=== PATIENT | male | born 1990 | race Two or more races ===

== ENCOUNTER 2024-02-26 00:45 | Emergency (ER) | payer MEDICAID, SELFPAY ==
[2024-02-26 00:46] VITALS: BMI 25.7
[2024-02-26 00:57] VITALS: BP 128/80; PULSE 67; RESP 18; TEMP 36.7; O2SAT 97
--- NOTE | 2024-02-26 01:17 | PD.EDEAR ---
ED Ear RME/HPI General Chief complaint: Ear Stated complaint: RIGHT EAR PAIN Time Seen by Provider: 02/26/24 01:02 Arrival date/time: 02/26/24 00:45 33M with no significant PMH presents to ED with several days of R ear pain. Limitations: no limitations Related Data Previous Rx's ?Medication ?Instructions ?Recorded albuterol sulfate 90 mcg/actuation 2 puff inhalation Q6HR PRN 01/02/17 aerosol inhaler (ProAir HFA) WHEEZING #1 inh amoxicillin 875 mg tablet 875 mg PO BID 5 days #10 tabs 02/26/24 Allergies Allergy/AdvReac Type Severity Reaction Status Date / Time No Known Allergies Allergy Verified 03/01/22 17:31 Review of Systems Review of Systems Systems Reviewed: All systems reviewed, normal except as documented Constitutional Constitutional: Reports system reviewed and no additional complaints, except as documented, Denies fever(s) and Denies headache(s) ENT Ears, Nose, Mouth, and Throat: Reports as per HPI, Denies disequilibrium, Reports otalgia and Denies headache(s) Cardiovascular Cardiovascular: Reports system reviewed and no additional complaints, except as documented, Denies chest pain and Denies dyspnea Respiratory Respiratory: Reports system reviewed and no additional complaints, except as documented, Denies cough and Denies dyspnea Gastrointestinal Gastrointestinal: Reports system reviewed and no additional complaints, except as documented, Denies abdominal pain, Denies nausea and Denies vomiting Neurologic Neurologic: Reports system reviewed and no additional complaints, except as documented, Denies confusion, Denies disequilibrium and Denies headache(s) Psychiatric Psychiatric: Denies confusion Past Medical History Social History SMOKING STATUS: Current every day smoker ED Exam General Limitations: Present no limitations General appearance: Present alert and in no apparent distress Head Head exam: Present atraumatic Eye Eye exam: Present normal appearance, PERRL and EOMI ENT ENT exam: Present normal oropharynx and mucous membranes moist Expanded ENT Exam TM/Canal exam: Right TM: erythema and bulging Neck Neck exam: Present normal inspection, full ROM and trachea midline Chest Chest inspection: Present normal inspection and symmetric chest wall rise Respiratory Respiratory exam: Present normal lung sounds bilaterally Cardiovascular Cardiovascular exam: Present regular rate, normal rhythm and normal heart sounds Abdominal Exam Abdominal exam: Present soft and normal bowel sounds Extremities Exam Extremities exam: Present normal inspection and full ROM Back Exam Back exam: Present normal inspection and full ROM Neurological Exam Neurological exam: Present alert, oriented X3 and CN II-XII intact Psychiatric Psychiatric exam: Present normal affect and normal mood Skin Skin exam: Present warm, dry, intact and normal color Course Quality Measures none Vital Signs Vital signs: Vital Signs Temperature 98.1 F 02/26/24 00:57 Pulse Rate 67 02/26/24 00:57 Respiratory Rate 18 02/26/24 00:57 Blood Pressure 128/80 02/26/24 00:57 Pulse Oximetry (%) 97 02/26/24 00:57 Oxygen Delivery Method Room Air 02/26/24 00:57 O2 at 97% on RA and WNLs Ear MDM Narrative MDM Narrative:: 33M with no significant PMH presents to ED with several days of R ear pain. Physical exam reveals R red and bulging TM. Patient is afebrile, calm, and alert. Likely OM. Patient data External records reviewed:: [facility] previous records Clinical information provided by:: patient Social determinants that could affect healthcare access:: none Patient has the following chronic illnesses:: none How is presenting disease/condition affected by chronic disease/condition?: no chronic disease Evaluation data The following diagnostics were reviewed and interpreted by me:: other (specify) (none) Lab and/or radiology exams considered but not ordered:: not ordered Interpretation Summary: n/a Medications / Prescriptions Medications or Prescriptions considered but not ordered:: not ordered Medication administrations:: n/a Consultations Consultation(s) initiated? (list below): No Diagnosis Ear Differential Diagnosis: otitis externa, otitis media, foreign body in ear, ruptured TM and cerumen impaction Most likely diagnosis given after review of the tests above:: OM Admission Indicated Admission indicated?: not indicated Admission Request Was there a request for admission?: No Disposition Plan Disposition Plan: Discharge Discharge Attestation Discharge Attestation: The patient and all family members were given an opportunity to ask questions and understood the discharge instructions. Discharge instructions specifically effects, indications for sooner follow up or return to the emergency department, and the expected course of current diagnosis. Patient condition: Stable Discharge Plan Plan Patient Disposition: HOME (Self Care) Disposition Comment: Stable Prescriptions/Referrals Prescriptions/Med Rec: New amoxicillin 875 mg tablet 875 mg PO BID 5 Days Qty: 10 0RF No Action albuterol sulfate [ProAir HFA] 8.5 GM HFA aerosol inhaler 2 puff Inhalation Q6HR PRN (Reason: WHEEZING) Qty: 1 0RF Rx Instructions: please give spacer Problem List Clinical Impression: Otitis media Patient/Caregiver Discharge Instructions Education Materials: ED Otitis Media Antibiotic ... Additional Instructions: Please follow-up with PCP within 24-48 hours and return immediately if symptoms worsen. Print Language: Bahamian Stand Alone Forms: Patient Portal Info Letter PA/ENGINEER AUTOMATED EQUIPMENT Supervising Physician PA/ENG[employer]ER [employer] Supervising Physician: Dr. Fink
== END 2024-02-26 01:08 | disposition home or self-care (01) ==
LOC: SERX 03:09
PROVIDERS: Emergency Provider Emergency Medicine; PCP Family Medicine
DX: H66.91 Otitis media, unspecified, right ear (principal)
CPT/HCPCS: 99281

== ENCOUNTER 2024-06-23 10:34 | Emergency (ER) | payer SELFPAY ==
[2024-06-23 10:34] VITALS: BMI 25.7
--- NOTE | 2024-06-23 11:09 | XR_ITS ---
Examination: Right elbow 3 views Technique: Elbow AP, oblique, lateral 3 views Exam date and time: June 23, 2024 1131 hours INDICATIONS: Right elbow pain beginning one week ago. FINDINGS: Mild elbow osteoarthritis No fracture or dislocation No elbow effusion IMPRESSION: Mild elbow osteoarthritis.
--- NOTE | 2024-06-23 11:10 | PD.EDUPEX ---
Upper Extremity Injury RME/HPI General Chief Complaint: Extremity Injury, Upper Stated Complaint: R) ARM PAIN FROM WRIST TO ELBOW Time Seen by Provider: 06/23/24 11:10 Source: patient Arrival date/time: 06/23/24 10:34 33-year-old male with no known medical history presents to the emergency room with a chief complaint of pain and tenderness to his right elbow x 3 days Mode of arrival: ambulatory Limitations: no limitations Related Data Previous Rx's ?Medication ?Instructions ?Recorded albuterol sulfate 90 mcg/actuation 2 puff inhalation Q6HR PRN 01/02/17 aerosol inhaler (ProAir HFA) WHEEZING #1 inh ibuprofen 600 mg tablet 600 mg PO Q8H PRN fever or pain 06/23/24 #20 tabs Allergies Allergy/AdvReac Type Severity Reaction Status Date / Time No Known Allergies Allergy Verified 06/23/24 10:37 Review of Systems Review of Systems Systems Reviewed: All systems reviewed, normal except as documented Constitutional Constitutional: Reports system reviewed and no additional complaints, except as documented, Denies fatigue, Denies fever(s), Denies headache(s) and Denies weakness Eyes Eyes: Reports system reviewed and no additional complaints, except as documented, Denies blurry vision and Denies change in vision ENT Ears, Nose, Mouth, and Throat: Reports system reviewed and no additional complaints, except as documented, Denies otalgia, Denies headache(s), Denies nasal congestion, Denies throat swelling and Denies vertigo Cardiovascular Cardiovascular: Reports system reviewed and no additional complaints, except as documented, Denies chest pain, Denies dyspnea and Denies dyspnea on exertion Respiratory Respiratory: Reports system reviewed and no additional complaints, except as documented, Denies chest congestion, Denies cough, Denies dyspnea, Denies dyspnea on exertion and Denies wheezing Gastrointestinal Gastrointestinal: Reports system reviewed and no additional complaints, except as documented, Denies abdominal pain, Denies cramping, Denies nausea and Denies vomiting Genitourinary Genitourinary: Reports system reviewed and no additional complaints, except as documented, Denies dysuria and Denies hematuria Musculoskeletal Musculoskeletal: Reports system reviewed and no additional complaints, except as documented, Reports arthralgias, Denies back pain, Reports joint swelling and Reports limited range of motion Integumentary/Breasts Skin/Breast: Reports system reviewed and no additional complaints, except as documented and Denies wounds Neurologic Neurologic: Reports system reviewed and no additional complaints, except as documented, Denies confusion, Denies headache(s), Denies lack of coordination, Denies vertigo and Denies weakness Psychiatric Psychiatric: Reports system reviewed and no additional complaints, except as documented, Denies anxiety, Denies confusion, Denies depression, Denies paranoia, Denies suicidal ideation and Denies tactile hallucinations Endocrine Endocrine: Reports system reviewed and no additional complaints, except as documented and Denies fatigue Hematologic/Lymphatic Hematologic/Lymphatic: Reports system reviewed and no additional complaints, except as documented and Denies lymphadenopathy Allergic/Immunologic Allergic/Immunologic: Reports system reviewed and no additional complaints, except as documented, Denies throat swelling, Denies urticaria and Denies wheezing Past Medical History Social History SMOKING STATUS: Never smoker ED Exam General Limitations: Present no limitations General appearance: Present alert and in no apparent distress Head Head exam: Present atraumatic Eye Eye exam: Present normal appearance, PERRL and EOMI ENT ENT exam: Present normal exam, normal oropharynx and mucous membranes moist Neck Neck exam: Present normal inspection, full ROM and trachea midline Chest Chest inspection: Present normal inspection and symmetric chest wall rise Respiratory Respiratory exam: Present normal lung sounds bilaterally Cardiovascular Cardiovascular exam: Present regular rate, normal rhythm and normal heart sounds Abdominal Exam Abdominal exam: Present soft and normal bowel sounds Extremities Exam Extremities exam: Present normal inspection and full ROM Expanded Upper Extremity Exam Shoulder exam: Present normal inspection Arm exam: Present normal inspection Elbow exam: Present full ROM, tenderness, pain w/ pronation/supination and tenderness over radial head; Absent deformity Back Exam Back exam: Present normal inspection and full ROM Neurological Exam Neurological exam: Present alert, oriented X3 and CN II-XII intact Psychiatric Psychiatric exam: Present normal affect and normal mood Skin Skin exam: Present warm, dry, intact and normal color Course Quality Measures none Orders Category Date Time Status scott wrap [Splint / Immobilizer] STAT Care 06/23/24 11:09 Completed XR elbow comp RT min 3V Stat Exams 06/23/24 11:09 Completed Ketorolac Inj [Toradol Inj] Med 06/23/24 11:09 Discontinued 30 mg IM X1 ONE Vital Signs Vital signs: Vital Signs Temperature 98.5 F 06/23/24 11:12 Pulse Rate 68 06/23/24 11:12 Respiratory Rate 16 06/23/24 11:12 Blood Pressure 125/86 H 06/23/24 11:12 Pulse Oximetry (%) 100 06/23/24 11:12 Oxygen Delivery Method Room Air 06/23/24 11:12 O2 saturation 100% within normal limits Extremity Injury MDM Narrative MDM Narrative:: 33-year-old male with no known medical history presents to the emergency room with a chief complaint of pain and tenderness to his right elbow x 3 days Patient is hemodynamically stable and in no apparent distress Physical examination shows pain and tenderness to the patient's right elbow. The patient has pain with supination. X-ray of the elbow was completed and was negative for any acute fracture or dislocation. Patient's symptoms are consistent with medial epicondylitis. An Scott wrap was placed and patient was given medication. Patient was discharged and educated to follow-up with primary care provider in the next 24 to 48 hours and return to the emergency room for any evidence of worsening signs or symptoms Patient data External records reviewed:: [facility] previous records Clinical information provided by:: patient Social determinants that could affect healthcare access:: none Patient has the following chronic illnesses:: No chronic illness How is presenting disease/condition affected by chronic disease/condition?: no chronic disease Evaluation data The following diagnostics were reviewed and interpreted by me:: lab results and radiology exam(s) Lab and/or radiology exams considered but not ordered:: Labs and radiology exams considered and ordered Interpretation Summary: Elbow [id number]: Mild elbow osteoarthritis No fracture or dislocation No elbow effusion IMPRESSION: Mild elbow osteoarthritis. Medications / Prescriptions Medications or Prescriptions considered but not ordered:: Medication given Medication administrations:: Medication Administration History Discontinued Medications Ketorolac Tromethamine (Ketorolac Inj 60 Mg/2 Ml Vial) 30 mg IM X1 ONE Stop: 06/23/24 11:10 Last Admin: 06/23/24 12:33 Dose: 30 mg Documented By: KM Medication given Consultations Consultation(s) initiated? (list below): No Diagnosis Upper Extremity Injury Differential Diagnosis: other (Medial epicondylitis/lateral epicondylitis/elbow fracture/elbow sprain) Most likely diagnosis given after review of the tests above:: Medial epicondylitis Admission Indicated Admission indicated?: not indicated Admission Request Was there a request for admission?: No Disposition Plan Disposition Plan: Discharge Discharge Attestation Discharge Attestation: The patient and all family members were given an opportunity to ask questions and understood the discharge instructions. Discharge instructions specifically effects, indications for sooner follow up or return to the emergency department, and the expected course of current diagnosis. Patient condition: Stable Discharge Plan Plan Patient Disposition: HOME (Self Care) Disposition Comment: Stable Prescriptions/Referrals Prescriptions/Med Rec: New ibuprofen 600 mg tablet 600 mg PO Q8H PRN (Reason: fever or pain) Qty: 20 0RF No Action albuterol sulfate [ProAir HFA] 8.5 GM HFA aerosol inhaler 2 puff Inhalation Q6HR PRN (Reason: WHEEZING) Qty: 1 0RF Rx Instructions: please give spacer Problem List Clinical Impression: Epicondylitis elbow, medial Patient/Caregiver Discharge Instructions Education Materials: Understanding Medial Epicondylitis Additional Instructions: Please follow-up with your primary care provider in the next 24 to 48 hours. Your x-ray was negative for any acute fracture or dislocation. This appears to be a sprain to one of the tendons in your elbow. For any evidence of worsening signs or symptoms return to the emergency room immediately Print Language: Slovak Stand Alone Forms: [place] Award Info., Work/School Release, Patient Portal Info Letter PA/REPORT PROGRAMMER Supervising Physician PA/REPORT PROGRAMMER Supervising Physician: Dr. Lama
[2024-06-23 11:12] VITALS: BP 125/86; PULSE 68; RESP 16; TEMP 36.9; O2SAT 100; BMI 25.7
[2024-06-23] MEDS: KETOROLAC INJ 60 MG/2 ML VIAL 30 MG IM (12:33)
[2024-06-23 13:39] VITALS: RESP 18; TEMP 37; O2SAT 100
== END 2024-06-23 13:20 | disposition home or self-care (01) ==
LOC: SERX 12:51
PROVIDERS: Emergency Provider Emergency Medicine; PCP Family Medicine
DX: M77.01 Medial epicondylitis, right elbow (principal); M19.021 Primary osteoarthritis, right elbow
CPT/HCPCS: 73080; 96372; 99283; J1885

== ENCOUNTER 2024-07-10 16:26 | Emergency (ER) | payer SELFPAY ==
[2024-07-10 16:46] VITALS: BP 124/81; PULSE 72; RESP 18; TEMP 37.2; O2SAT 96; BMI 26.4
--- NOTE | 2024-07-10 16:54 | XR_ITS ---
Examination: PA lateral chest 2 views TECHNIQUE: Upright PA lateral chest 2 views Examination type: July 10, 2024 1945 hours INDICATIONS: Coughing wheezing fever beginning one week ago. FINDINGS: Normal heart size. Lungs are clear. The osseous structures are intact. IMPRESSION: No active disease
--- NOTE | 2024-07-10 16:55 | PD.EDRME ---
Rapid Medical Screening Exam RME Arrival date/time: 07/10/24 16:26 33-year-old male with no known medical history presents to the emergency room with a chief complaint of cough, congestion, headache, loss of food taste x 3 days I have greeted and performed a focused initial assessment of this patient. A comprehensive ED assessment and evaluation of the patient, analysis of all test results, and completion of the medical decision making process will be conducted by additional ED providers. Chief Complaint: Flu Like Symptoms Vital signs: Vital Signs Temperature 99 F 07/10/24 16:46 Pulse Rate 72 07/10/24 16:46 Respiratory Rate 18 07/10/24 16:46 Blood Pressure 124/81 07/10/24 16:46 Pulse Oximetry (%) 96 07/10/24 16:46 Oxygen Delivery Method Room Air 07/10/24 16:46 Vital signs reviewed by provider: Yes
[2024-07-10] MEDS: ALBUTEROL/IPRATROPIUM (Duoneb) RT SOL 3 ML NEBU INH (17:11)
[2024-07-10 17:12] VITALS: PULSE 72; RESP 18; O2SAT 98
[2024-07-10] MEDS: DEXAMETHASONE SOD PHOS INJ 10 MG/ML VIAL PO (17:34)
--- NOTE | 2024-07-10 20:09 | EDNOTE_ITS ---
<Statement entered by Vivian Spicer MD - 07/12/24 04:23> As co-signing physician, I was present and available for consult prn. I concur with the plan and care as documented by the midlevel provider. Upper Respiratory Inf. RME/HPI General Chief Complaint: Flu Like Symptoms Stated Complaint: SINUS PRESSURE, COUGH, FEVER X 4 DAYS Time Seen by Provider: 07/10/24 20:01 Arrival date/time: 07/10/24 16:26 RME / HPI RME / HPI Narrative: 33-year-old male with no known medical history presents to the emergency room with a chief complaint of cough, congestion, headache, loss of food taste x 3 days. Patient is also complaining of a lot of nasal congestion. Also complaining of facial pain and headache. Denies any other complaints no medications taken prior to ER visit. Related Data Previous Rx's ?Medication ?Instructions ?Recorded albuterol sulfate 90 mcg/actuation 2 puff inhalation Q 6HR PRN 01/02/17 aerosol inhaler (ProAir HFA) WHEEZING #1 inh ibuprofen 600 mg tablet 600 mg PO Q8H PRN fever or p ain 06/23/24 #20 tabs albuterol sulfate 90 mcg/actuation 2 inh inhalation Q6 H PRN shortness 07/10/24 aerosol inhaler of breath or wheezing #8.5 g anaya amoxicillin 875 mg-potassium 1 tab PO BID #14 tabs 05/05 clavulanate 125 mg tablet prednisone 50 mg tablet 50 mg PO QDAY #5 tabs Allergies Allergy/AdvReac Type Severity Reaction Status Date / Time No Known Allergies Allergy Verified 07/10/24 16:29 Review of Systems Review of Systems Narrative Review of Systems: Review of system reviewed and within normal limits except mentioned in HPI ED Exam Narrative Physical exam: VITAL SIGNS: Reviewed. GENERAL APPEARANCE: Alert and interactive, follows commands, no acute distress, HEAD AND FACE: Non-traumatic.+ Frontal tenderness bilateral ENT: PERRL, pink conjunctivitis, eyelid no trauma, Mucous membrane moist., Nasal congestion NECK: Supple, nontender, no nuchal rigidity. CHEST: No tenderness, no crepitus, no paradoxical movement, no retractions. LUNGS: Clear, well ventilated, symmetric, no rales, no wheezing, no ronchi, no stridor, good breath sounds bilaterally. HEART: Regular rate, regular rhythm, no murmur, no gallops. ABDOMEN: Soft, positive bowel sounds, nondistended, no guarding, nontender, no rebound, no masses, RECTAL: Deferred. GENITAL: Deferred. NEUROLOGICAL: Gross motor function intact sensory function intact, Appropriate for age. MUSCULOSKELETAL: low back nontender, full range of motion. EXTREMITIES: Nontender, full range of motion. SKIN: Color pink, dry, no rash, no lacerations, no abrasions, no contusions. LYMPHATICS: Deferred. Course Quality Measures none Orders Category Date Time Status Bedside COVID-19 Antigen Test NOW Care 07/10/24 16:54 Active Bedside Influenza A&B Antigen Test NOW Care 07/10/24 16:54 Completed XR chest 2V Stat Exams 07/10/24 16:54 Completed Albuterol/Ipratr Rt Nury [Duoneb Rt Nury] Med 07/10/24 16:54 Discontinued 3 ml INH X1 ONE Amoxicillin/Pot Clav 875 [Augmentin 875] Med 07/10/24 20:09 Once 1 tab PO X1 ONE Dexamethasone Inj [Decadron Inj] Med 07/10/24 16:54 Discontinued 10 mg PO X1 ONE Vital Signs Vital signs: Vital Signs Temperature 99 F 07/10/24 16:46 Pulse Rate 72 07/10/24 16:46 Respiratory Rate 18 07/10/24 16:46 Blood Pressure 124/81 07/10/24 16:46 Pulse Oximetry (%) 96 07/10/24 16:46 Oxygen Delivery Method Room Air 07/10/24 16:46 Upper Respiratory Infection MDM Narrative MDM Narrative:: 33-year-old male with no known medical history presents to the emergency room with a chief complaint of cough, congestion, headache, loss of food taste x 3 days. Patient is also complaining of a lot of nasal congestion. Also complaining of facial pain and headache. Denies any other complaints no medications taken prior to ER visit. Patient chest x-ray came back unremarkable. Patient tested negative for influenza and COVID-19 Patient received Decadron and DuoNeb breathing treatment. Patient was also given Augmentin for sinusitis. Patient verbalized significant improvement of symptoms. Patient appears nontoxic and hemodynamically stable. Patient discharged home and instructed to follow-up with primary care provider in 24 to 48 hours. Instructed to return to the emergency department immediately if worsening of symptoms Patient data External records reviewed:: None Clinical information provided by:: patient Social determinants that could affect healthcare access:: none Patient has the following chronic illnesses:: None How is presenting disease/condition affected by chronic disease/condition?: no chronic disease Evaluation data The following diagnostics were reviewed and interpreted by me:: lab results and radiology exam(s) Lab and/or radiology exams considered but not ordered:: None Interpretation Summary: See results MDM Medications / Prescriptions Medications or Prescriptions considered but not ordered:: None Medication administrations:: Medication Administration History Discontinued Medications Albuterol/Ipratropium (Albuterol/Ipratropium (Duoneb) Rt Nury 3 Ml Nebu) 3 ml INH X1 ONE Stop: 07/10/24 16:55 Last Admin: 07/10/24 17:11 Dose: 3 ml Documented By: PRINCESS Dexamethasone Sodium Phosphate (Dexamethasone Sod Phos Inj 10 Mg/Ml Vial) 10 mg PO X1 ONE Stop: 07/10/24 16:55 Last Admin: 07/10/24 17:34 Dose: 10 mg Documented By: Radha and Kayleigh Consultations Consultation(s) initiated? (list below): No Diagnosis Upper Respiratory Differential Diagnosis: upper respiratory infection, sinusitis and bronchitis Most likely diagnosis given after review of the tests above:: Sinusitis, shortness of breath Admission Indicated Admission indicated?: not indicated Admission Request Was there a request for admission?: No Disposition Plan Disposition Plan: Discharge Discharge Attestation Discharge Attestation: The patient was given an opportunity to ask questions and understood the discharge instructions. Discharge instructions specifically effects, indications for sooner follow up or return to the emergency department, and the expected course of current diagnosis. Patient condition: Stable Discharge Plan Plan Patient Disposition: HOME (Self Care) Discharge Disposition comment: Stable Prescriptions/Referrals Prescriptions/Med Rec: New prednisone 50 mg tablet 50 mg PO QDAY Qty: 5 0RF amoxicillin-pot clavulanate 875-125 mg tablet 1 tab PO BID Qty: 14 0RF albuterol sulfate 90 mcg/actuation HFA aerosol inhaler 2 inh inhalation Q6H PRN (Reason: shortness of breath or wheezing) Qty: 8.5 0RF No Action albuterol sulfate [ProAir HFA] 8.5 GM HFA aerosol inhaler 2 puff Inhalation Q6HR PRN (Reason: WHEEZING) Qty: 1 0RF Rx Instructions: please give spacer ibuprofen 600 mg tablet 600 mg PO Q8H PRN (Reason: fever or pain) Qty: 20 0RF Referrals: No Primary/Family,Physician [Primary Care Provider] - In 1 week Problem List Clinical Impression: Sinusitis Patient/Caregiver Discharge Instructions Discharge Activity: activity as tolerated Education Materials: Causes of Sinusitis Additional Instructions: Thank you for the opportunity for serving you today. You are stable for discharged . You are advised to: Follow-up with your PCP in 1 to 2 days Return to ED for worsening of symptoms Increase oral fluids Take medication as prescribed Print Language: Sierra Leonean Stand Alone Forms: [place] Award Info., Work/School Release, Patient Portal Info Letter MARK/SEFERINO Supervising Physician MARK/SEFERINO Supervising Physician: MD Nayan
[2024-07-10 20:18] VITALS: BP 122/78; PULSE 77; O2SAT 99
== END 2024-07-10 20:25 | disposition home or self-care (01) ==
PROVIDERS: Emergency Provider Emergency Medicine
DX: J32.9 Chronic sinusitis, unspecified (principal)
CPT/HCPCS: 71046; 87400; 87811; 94640; 99283; A9270; J1100

== ENCOUNTER 2024-07-15 17:28 | Emergency (ER) | payer SELFPAY ==
[2024-07-15 17:29] VITALS: BMI 27.4
[2024-07-15 18:13] VITALS: BP 128/87; PULSE 56; RESP 16; TEMP 36.9; O2SAT 98
--- NOTE | 2024-07-15 18:36 | PD.EDHAND ---
Upper Extremity Injury RME/HPI General Chief Complaint: Hand/Wrist Problems Stated Complaint: L INDEX FINGER INJURY Time Seen by Provider: 07/15/24 18:28 Arrival date/time: 07/15/24 17:28 33M with no significant PMH presents to ED with several days of L index finger pain after he accidentally poked himself with a metal ugarte. Patient has not had a tetanus shot in the past 5 years. Limitations: no limitations Related Data Previous Rx's ?Medication ?Instructions ?Recorded albuterol sulfate 90 mcg/actuation 2 puff inhalation Q6HR PRN 01/02/17 aerosol inhaler (ProAir HFA) WHEEZING #1 inh ibuprofen 600 mg tablet 600 mg PO Q8H PRN fever or pain 06/23/24 #20 tabs albuterol sulfate 90 mcg/actuation 2 inh inhalation Q6H PRN shortness 07/10/24 aerosol inhaler of breath or wheezing #8.5 grams amoxicillin 875 mg-potassium 1 tab PO BID #14 tabs 07/10/24 clavulanate 125 mg tablet prednisone 50 mg tablet 50 mg PO QDAY #5 tabs 07/10/24 doxycycline hyclate 100 mg tablet 100 mg PO BID 5 days #10 tabs 07/15/24 Allergies Allergy/AdvReac Type Severity Reaction Status Date / Time No Known Allergies Allergy Verified 07/15/24 17:29 Review of Systems Review of Systems Systems Reviewed: All systems reviewed, normal except as documented Constitutional Constitutional: Reports system reviewed and no additional complaints, except as documented, Denies fever(s) and Denies headache(s) ENT Ears, Nose, Mouth, and Throat: Denies disequilibrium and Denies headache(s) Cardiovascular Cardiovascular: Reports system reviewed and no additional complaints, except as documented, Denies chest pain and Denies dyspnea Respiratory Respiratory: Reports system reviewed and no additional complaints, except as documented, Denies cough and Denies dyspnea Gastrointestinal Gastrointestinal: Reports system reviewed and no additional complaints, except as documented, Denies abdominal pain, Denies nausea and Denies vomiting Integumentary/Breasts Skin/Breast: Reports as per HPI and Reports skin pain Neurologic Neurologic: Reports system reviewed and no additional complaints, except as documented, Denies confusion, Denies disequilibrium and Denies headache(s) Psychiatric Psychiatric: Denies confusion Past Medical History Social History SMOKING STATUS: Current some day smoker ED Exam General Limitations: Present no limitations General appearance: Present alert and in no apparent distress Head Head exam: Present atraumatic Eye Eye exam: Present normal appearance, PERRL and EOMI ENT ENT exam: Present normal exam, normal oropharynx and mucous membranes moist Neck Neck exam: Present normal inspection, full ROM and trachea midline Chest Chest inspection: Present normal inspection and symmetric chest wall rise Respiratory Respiratory exam: Present normal lung sounds bilaterally Cardiovascular Cardiovascular exam: Present regular rate, normal rhythm and normal heart sounds Abdominal Exam Abdominal exam: Present soft and normal bowel sounds Extremities Exam Extremities exam: Present full ROM Expanded Upper Extremity Exam Hand exam: Present full ROM (L index finger around nail), tenderness and swelling Back Exam Back exam: Present normal inspection and full ROM Neurological Exam Neurological exam: Present alert, oriented X3 and CN II-XII intact Psychiatric Psychiatric exam: Present normal affect and normal mood Skin Skin exam: Present warm, dry, intact and normal color Course Quality Measures none Orders Category Date Time Status Wound Care NOW Care 07/15/24 18:28 Active Doxycycline [Vibramycin] Med 07/15/24 18:28 Discontinued 100 mg PO X1 ONE TET,DIP/PERT AC (Adult)-Tdap [Boostrix Adult (Tdap) Med 07/15/24 18:28 Discontinued Vacc] 0.5 ml IMI .ONCE ONE Vital Signs Vital signs: Vital Signs Temperature 98.5 F 07/15/24 18:13 Pulse Rate 56 L 07/15/24 18:13 Respiratory Rate 16 07/15/24 18:13 Blood Pressure 128/87 H 07/15/24 18:13 Pulse Oximetry (%) 98 07/15/24 18:13 Oxygen Delivery Method Room Air 07/15/24 18:13 O2 at 98% on RA and WNLs Procedures -ED Abscess I/D Site: hand Side (if applicable): left Sedation/analgesia: none Local Anesthetic: lidocaine 1% Amount of anesthesia used (mL): 2 Technique: needle aspiration Amount of fluid expressed (mL): 1 Irrigation: Yes Packing used?: none Complications: pain and bleeding Extremity Injury MDM Narrative MDM Narrative:: 33M with no significant PMH presents to ED with several days of L index finger pain after he accidentally poked himself with a metal ugarte. Patient has not had a tetanus shot in the past 5 years. Physical exam reveals L index finger swelling and some pus around fingernail. ROM intact. Patient is afebrile, calm and alert. Paronychia drained. Tdap and ABX given. Patient data External records reviewed:: [facility] previous records Clinical information provided by:: patient Social determinants that could affect healthcare access:: none Patient has the following chronic illnesses:: none How is presenting disease/condition affected by chronic disease/condition?: no chronic disease Evaluation data The following diagnostics were reviewed and interpreted by me:: other (specify) (none) Lab and/or radiology exams considered but not ordered:: not ordered Interpretation Summary: n/a Medications / Prescriptions Medications or Prescriptions considered but not ordered:: ordered Medication administrations:: Medication Administration History Discontinued Medications Diphtheria/Tetanus/Acell Pertussis (Diphth,Pertuss(Acell),Tet Vac 0.5 Ml Syr- Adult) 0.5 ml IMi .ONCE ONE Stop: 07/15/24 18:29 Last Admin: 07/15/24 18:58 Dose: 0.5 ml Documented By: EILEEN Doxycycline Hyclate (Doxycycline 100 Mg Tablet) 100 mg PO X1 ONE Stop: 07/15/24 18:29 Last Admin: 07/15/24 18:59 Dose: 100 mg Documented By: EILEEN above Consultations Consultation(s) initiated? (list below): No Diagnosis Upper Extremity Injury Differential Diagnosis: sprain and strain of wrist, fracture of wrist, finger sprain and other (paronychia, cellulitis, hematoma) Most likely diagnosis given after review of the tests above:: paronychia Admission Indicated Admission indicated?: not indicated Admission Request Was there a request for admission?: No Disposition Plan Disposition Plan: Discharge Discharge Attestation Discharge Attestation: The patient and all family members were given an opportunity to ask questions and understood the discharge instructions. Discharge instructions specifically effects, indications for sooner follow up or return to the emergency department, and the expected course of current diagnosis. Patient condition: Stable Discharge Plan Plan Patient Disposition: HOME (Self Care) Discharge Disposition comment: Stable Prescriptions/Referrals Prescriptions/Med Rec: New doxycycline hyclate 100 mg tablet 100 mg PO BID 5 Days Qty: 10 0RF No Action albuterol sulfate [ProAir HFA] 8.5 GM HFA aerosol inhaler 2 puff Inhalation Q6HR PRN (Reason: WHEEZING) Qty: 1 0RF Rx Instructions: please give spacer ibuprofen 600 mg tablet 600 mg PO Q8H PRN (Reason: fever or pain) Qty: 20 0RF prednisone 50 mg tablet 50 mg PO QDAY Qty: 5 0RF amoxicillin-pot clavulanate 875-125 mg tablet 1 tab PO BID Qty: 14 0RF albuterol sulfate 90 mcg/actuation HFA aerosol inhaler 2 inh inhalation Q6H PRN (Reason: shortness of breath or wheezing) Qty: 8.5 0RF Referrals: No Primary/Family,Physician [Primary Care Provider] - In 1 week Problem List Clinical Impression: Paronychia Patient/Caregiver Discharge Instructions Education Materials: ED Paronychia of the Finger or Toe Additional Instructions: Please follow-up with PCP within 24-48 hours and return immediately if symptoms worsen. Print Language: Tuvaluan Stand Alone Forms: Patient Portal Info Letter PA/OFFICE MACHINE PUNCH OPERATOR Supervising Physician MARK/OFFICE MACHINE PUNCH OPERATOR Supervising Physician: Dr. Cuevas
[2024-07-15] MEDS: DIPHTH,PERTUSS(ACELL),TET VAC 0.5 ML SYR- ADULT IMi (18:58)
[2024-07-15] MEDS: DOXYCYCLINE 100 MG TABLET PO (18:59)
== END 2024-07-15 19:24 | disposition home or self-care (01) ==
PROVIDERS: Emergency Provider Emergency Medicine
DX: L03.012 Cellulitis of left finger (principal); Z23 Encounter for immunization
CPT/HCPCS: 10060; 90471; 90715; 99283; A9270